=== PATIENT | male | born 1995 | race Two or more races ===

== ENCOUNTER 2020-05-25 17:08 | Emergency (ER) | payer SELFPAY ==
--- NOTE | 2020-05-25 18:06 | ER Document Report ---
ED Medical Screen (RME) - General Chief Complaint: Swallowed Foreign Body Stated Complaint: CHEST PAIN Time Seen by Provider: 05/25/20 17:59 Mode of Arrival: Wheelchair Information source: Patient, Friend Notes: HPI; 24-year-old male who presents to the emergency room with a friend who is translating complaining of chest pain. States that around 2 PM he was drinking a soda when he thought he felt something sharp go down his throat. States he ate a banana and now feels like it is in the middle of his chest. Describes it as a sharp stabbing pain in the midsternal region. Radiates to his left shoulder. Denies any nausea, vomiting, no shortness of breath, no difficulty breathing. States is able to swallow but is painful. PE: Alert and oriented x3. Moderate distress noted. Lungs: Clear to auscultation without rales, rhonchi, wheezes. Heart: Regular rate rhythm without murmurs, rubs, gallops. I have greeted and performed a rapid initial assessment of this patient. A comprehensive ED assessment and evaluation of the patient, analysis of test results and completion of the medical decision making process will be conducted by additional ED providers. I have specifically instructed the patient or family members with the patient to immediately return to any nursing staff should anything change in the patient's condition or with their chief complaint. TRAVEL OUTSIDE OF THE [place] IN LAST 30 DAYS: No - Related Data Allergies/Adverse Reactions: No Known Allergies Allergy (Verified 05/25/20 17:59) Past Medical History - Social History Chew tobacco use (# tins/day): No Frequency of alcohol use: None Drug Abuse: None Physical Exam - Vital signs Vitals: Temp Pulse Resp BP Pulse Ox 98.9 F 75 28 H 146/89 H 99 05/25/20 17:25 05/25/20 17:25 05/25/20 17:25 05/25/20 17:25 05/25/20 17:25 Course - Vital Signs Vital signs: Temp Pulse Resp BP Pulse Ox 98.9 F 75 28 H 146/89 H 99 05/25/20 17:25 05/25/20 17:25 05/25/20 17:25 05/25/20 17:25 05/25/20 17:25
[2020-05-25 18:32] LABS: ABSOLUTE BASOPHILS # (AUTO) 0.1 10^3/uL (0.0-0.2); ABSOLUTE EOSINOPHILS # (AUTO) 0.2 10^3/uL (0.0-0.6); ABSOLUTE LYMPHOCYTES (AUTO) 1.6 10^3/uL (0.5-4.7); ABSOLUTE MONOCYTES (AUTO) 0.8 10^3/uL (0.1-1.4); ABSOLUTE NEUT (AUTO) 11.2 10^3/uL (1.7-8.2); BASOPHILS % (AUTO) 0.4 % (0-2); EOSINOPHILS % (AUTO) 1.4 % (0-6); HEMATOCRIT 44.8 % (37.9-51.0); HEMOGLOBIN 15.4 g/dL (13.5-17.0); LYMPHOCYTES % (AUTO) 11.8 % (13-45); MEAN CORPUSCULAR HEMOGLOBIN 30.2 pg (27.0-33.4); MEAN CORPUSCULAR HGB CONC 34.5 g/dL (32.0-36.0); MEAN CORPUSCULAR VOLUME 88 fl (80-97); MONOCYTES % (AUTO) 5.8 % (3-13); PLATELET COUNT 217 10^3/uL (150-450); RED BLOOD COUNT 5.12 10^6/uL (4.35-5.55); RED CELL DISTRIBUTION WIDTH 13.7 % (11.5-14.0); SEGMENTED NEUTROPHILS % (AUTO) 80.6 % (42-78); TOTAL CELLS COUNTED % (AUTO) 100 %; WHITE BLOOD COUNT 13.9 10^3/uL (4.0-10.5)
--- NOTE | 2020-05-25 18:38 | RADIOLOGY REPORT (SQ) ---
EXAM DESCRIPTION: CHEST 2 VIEWS IMAGES COMPLETED DATE/TIME: 05/25/2020 6:30 pm REASON FOR STUDY: chest pain/foreign body COMPARISON: None. EXAM PARAMETERS: NUMBER OF VIEWS: two views TECHNIQUE: Digital Frontal and Lateral radiographic views of the chest acquired. RADIATION DOSE: NA LIMITATIONS: none FINDINGS: LUNGS AND PLEURA: No opacities, masses or pneumothorax. No pleural effusion. MEDIASTINUM AND HILAR STRUCTURES: No masses or contour abnormalities. HEART AND VASCULAR STRUCTURES: Heart normal size. No evidence for failure. BONES: No acute findings. HARDWARE: None in the chest. OTHER: No radiopaque foreign bodies are noted. IMPRESSION: NO ACUTE RADIOGRAPHIC FINDING IN THE CHEST. TECHNICAL DOCUMENTATION: JOB ID: [id number] 2010 [employer]- All Rights Reserved Reading location - IP/workstation name: [email or web address]
[2020-05-25 18:52] LABS: ALBUMIN 5.1 g/dL (3.5-5.0); ALKALINE PHOSPHATASE 100 U/L (38-126); ANION GAP 14 (5-19); ASPARTATE AMINO TRANSFERASE 31 U/L (17-59); BILIRUBIN,DIRECT 0.3 mg/dL (0.0-0.4); BILIRUBIN,TOTAL 0.5 mg/dL (0.2-1.3); BLOOD UREA NITROGEN 13 mg/dL (7-20); CALCIUM 10.4 mg/dL (8.4-10.2); CARBON DIOXIDE 22 mmol/L (22-30); CHLORIDE 104 mmol/L (98-107); CREATINE KINASE 135 U/L (55-170); GLUCOSE 104 mg/dL (75-110); POTASSIUM 4.2 mmol/L (3.6-5.0)
[2020-05-25 19:04] LABS: CREATINE KINASE MB 1.35 ng/mL (<4.55)
[2020-05-25 19:05] LABS: TROPONIN I < 0.012 ng/mL
--- NOTE | 2020-05-25 19:53 | EKG REPORT ---
SEVERITY:- NORMAL ECG - SINUS RHYTHM ST ELEV, PROBABLE NORMAL EARLY REPOL PATTERN : Confirmed by: Sheba Paz 25-May-2020 19:53:02
[2020-05-25] MEDS ORDERED: MAG HYDROX/AL HYDROX/SIMETH SUSP 30 ML UDCUP PO ONE (21:20)
[2020-05-25] MEDS ORDERED: LIDOCAINE 2% VISCOUS SOLN 15 ML UDCUP PO ONE (21:20)
[2020-05-25] MEDS ORDERED: METOCLOPRAMIDE HCL ORAL SOLN 10 MG/10 ML UDCUP PO ONE (21:20)
--- NOTE | 2020-05-25 21:39 | ER Document Report ---
ED General - General Chief Complaint: Swallowed Foreign Body Stated Complaint: CHEST PAIN Time Seen by Provider: 05/25/20 17:59 Primary Care Provider: [facility] [Provider Group] - Follow up as needed Mode of Arrival: Wheelchair TRAVEL OUTSIDE OF THE [place] IN LAST 30 DAYS: No - HPI Notes: Patient is a 24-year-old male with no significant medical history who presents with chest pain and foreign body sensation. Patient reports he was drinking a canned soda around 1 PM this afternoon when he felt something sharp in his throat. He states he swallowed and continues to feel sharp pain down his esophagus. He is now complaining of a sharp, throbbing substernal pain that is exacerbated by eating and drinking. Patient tried eating a banana to help relieve his symptoms but it only worsened the pain. He has been able to keep down the banana and denies any nausea or vomiting. Patient reports shortness of breath as he has increased pain with breathing. He denies abdominal pain, cough, hemoptysis, and hematemesis. - Related Data Allergies/Adverse Reactions: No Known Allergies Allergy (Verified 05/25/20 17:59) Past Medical History - General Information source: Patient, Friend - Social History Smoking Status: Current Every Day Smoker Chew tobacco use (# tins/day): No Frequency of alcohol use: Occasional Drug Abuse: None Family History: Reviewed & Not Pertinent Patient has homicidal ideation: No Review of Systems - Review of Systems Constitutional: No symptoms reported EENT: No symptoms reported Cardiovascular: See HPI Respiratory: See HPI Gastrointestinal: No symptoms reported Genitourinary: No symptoms reported Male Genitourinary: No symptoms reported Musculoskeletal: No symptoms reported Skin: No symptoms reported Hematologic/Lymphatic: No symptoms reported Neurological/Psychological: No symptoms reported Physical Exam - Vital signs Vitals: Temp Pulse Resp BP Pulse Ox 98.9 F 75 28 H 146/89 H 99 05/25/20 17:25 05/25/20 17:25 05/25/20 17:25 05/25/20 17:25 05/25/20 17:25 - Notes Notes: PHYSICAL EXAMINATION: VITALS: Vitals reviewed and within normal limits. GENERAL: Well-appearing, well-nourished and in no acute distress. HEAD: Atraumatic, normocephalic. EYES: Pupils equal, round, and reactive to light, extraocular movements intact, sclera anicteric, conjunctiva are normal. ENT: Nares patent, oropharynx clear without exudates. Moist mucous membranes. NECK: Normal range of motion, supple without lymphadenopathy. LUNGS: Breath sounds clear to auscultation bilaterally and equal. No wheezes rales or rhonchi. HEART: Regular, rate, and rhythm without murmurs. ABDOMEN: Soft, nontender, normoactive bowel sounds. No guarding, no rebound. No masses appreciated. EXTREMITIES: Normal range of motion, no pitting or edema. No cyanosis. NEUROLOGICAL: No focal neurological deficits. Moves all extremities spontaneously and on command. PSYCH: Normal mood, normal affect. SKIN: Warm, Dry, normal turgor, no rashes or lesions noted. Course - Re-evaluation Re-evalutation: Patient is a 24-year-old male who presents with chest pain and foreign body sensation after drinking a soda this afternoon. Vital signs are within normal limits. No concerning findings on physical exam. Chest x-ray is negative with no signs of radiopaque foreign body. WBC mildly elevated at 13.9. CMP unremarkable, troponin and CK/CK-MB negative. GI cocktail ordered to see if any relief is noted. 05/25/20 23:00 Patient reassessed after GI cocktail and he noted improvement with medication and is now fast asleep. Patient denies nausea or vomiting. Results discussed with patient. I am suspicious of esophageal spasm. Patient will be discharged home with a prescription for carafate. Return precautions and follow-up instructions given. Patient understands and is in agreement with the plan. - Vital Signs Vital signs: Temp Pulse Resp BP Pulse Ox 98.2 F 72 18 128/72 H 99 05/25/20 23:00 05/25/20 23:00 05/25/20 23:00 05/25/20 23:00 05/25/20 23:00 - Laboratory Result Diagrams: 05/25/20 18:15 05/25/20 18:15 Laboratory results interpreted by me: 05/25/20 05/25/20 18:15 18:15 WBC 13.9 H Lymph % (Auto) 11.8 L Absolute Neuts (auto) 11.2 H Seg Neutrophils % 80.6 H Calcium 10.4 H Albumin 5.1 H - EKG Interpretation by Me Additional EKG results interpreted by me: Sinus rhythm with a rate of 78. QTc 397. Normal axis. ST elevation in anterior leads consistent with J point elevation. No ischemic T wave inversions or ST segment changes in consecutive leads. Discharge - Discharge Clinical Impression: Esophageal pain Condition: Stable Disposition: HOME, SELF-CARE Additional Instructions: Esophageal Spasm Your diagnosis is esophageal spasm. This is tightness of the muscles of the esophagus. It causes symptoms such as chest pain or food "sticking." It's more common in persons with a hiatal hernia. Esophageal spasms can occur due to nerve damage (neuropathy), acid reflux, inherited esophageal conditions, or just due to old age. Often we x-ray the esophagus to look for ulcers, inflammation, reflux, or tumors. Usually, antacids or acid-suppressing medicines are used to control possible esophagitis (inflammation of the esophagus due to acid). Nitroglycerin can relax the esophagus when spasms occur. Avoid alcohol, aspirin, caffeine, tobacco, and foods that cause heartburn (such as chocolate). Elevate the head of your bed about four inches. Call the doctor if you develop severe chest pain, inability to swallow flu ids, fever, or worsening symptoms. Prescriptions: Sucralfate [Carafate 1 gm Tablet] 1 gm PO ACHS #30 tablet Referrals: [facility] [Provider Group] - Follow up as needed
[2020-05-25 23:23] VITALS: BP 128/72
== END 2020-05-25 23:23 | disposition home or self-care (01) ==
LOC: ER 17:08
DX: R19.8 Other specified symptoms and signs involving the digestive system and abdomen (principal); R07.2 Precordial pain; R07.1 Chest pain on breathing; R06.02 Shortness of breath; F17.200 Nicotine dependence, unspecified, uncomplicated; D72.829 Elevated white blood cell count, unspecified
CPT/HCPCS: 93005; 99285; 36415; 82553; 82550; 85025; 80053; 84484; 71046; 93010; J3490